=== PATIENT | male | born 1960 | race Caucasian/White ===

== ENCOUNTER 2019-10-26 15:24 | Outpatient (RCR) | payer BC, SELFPAY ==
[2019-08-07 16:38] LABS: INR 2.9
[2019-09-19 08:27] LABS: Prothrombin Time 30.4 Seconds (11.1-14.7)
[2019-10-26 15:54] LABS: INR 2.6; Prothrombin Time 27.2 Seconds (11.1-14.7)
== END 2019-11-05 23:59 | disposition home or self-care (01) ==
LOC: ANHLAB 15:24
PROVIDERS: PCP Family Medicine Adolescent Medicine; Visit Provider Family Medicine Adolescent Medicine
DX: Z51.81 Encounter for therapeutic drug level monitoring (principal); Z79.01 Long term (current) use of anticoagulants
CPT/HCPCS: 36415; 85610

== ENCOUNTER 2020-03-05 07:28 | Outpatient (RCR) | payer BC, SELFPAY ==
[2020-01-02 10:03] LABS: INR 2.7
[2020-03-05 08:42] LABS: INR 2.5; Prothrombin Time 26.6 Seconds (11.1-14.7)
== END 2020-04-01 23:59 | disposition home or self-care (01) ==
LOC: ANHLAB 07:28
PROVIDERS: PCP Family Medicine Adolescent Medicine; Visit Provider Family Medicine Adolescent Medicine
DX: Z51.81 Encounter for therapeutic drug level monitoring (principal); Z79.01 Long term (current) use of anticoagulants
CPT/HCPCS: 36415; 85610

== ENCOUNTER 2020-06-29 11:04 | Outpatient (RCR) | payer BC, SELFPAY ==
[2020-05-02 08:28] LABS: INR 2.7; Prothrombin Time 28.2 Seconds (11.1-14.7)
[2020-06-29 12:40] LABS: INR 3.1; Prothrombin Time 31.2 Seconds (11.1-14.7)
== END 2020-07-31 23:59 | disposition home or self-care (01) ==
LOC: ANHLAB 11:04
PROVIDERS: PCP Family Medicine Adolescent Medicine; Visit Provider Family Medicine Adolescent Medicine
DX: Z51.81 Encounter for therapeutic drug level monitoring (principal); Z79.01 Long term (current) use of anticoagulants
CPT/HCPCS: 36415; 85610

== ENCOUNTER 2020-11-12 11:12 | Outpatient (RCR) | payer BC, SELFPAY ==
[2020-08-21 12:07] LABS: INR 2.9; Prothrombin Time 30.6 Seconds (11.1-14.7)
[2020-11-12 11:40] LABS: INR 3.7; Prothrombin Time 36.9 Seconds (11.1-14.7)
== END 2020-11-19 23:59 | disposition home or self-care (01) ==
LOC: ANHLAB 11:12
PROVIDERS: PCP Family Medicine Adolescent Medicine; Visit Provider Family Medicine Adolescent Medicine
DX: Z51.81 Encounter for therapeutic drug level monitoring (principal); Z79.01 Long term (current) use of anticoagulants
CPT/HCPCS: 36415; 85610

== ENCOUNTER 2021-03-21 06:33 | Outpatient (RCR) | payer BC, SELFPAY ==
[2021-01-17 11:42] LABS: INR 3.4
[2021-03-21 07:46] LABS: INR 2.4; Prothrombin Time 25.4 Seconds (11.1-14.7)
== END 2021-04-17 23:59 | disposition home or self-care (01) ==
LOC: ANHLAB 06:33
PROVIDERS: PCP Family Medicine Adolescent Medicine; Visit Provider Family Medicine Adolescent Medicine
DX: Z51.81 Encounter for therapeutic drug level monitoring (principal); Z86.711 Personal history of pulmonary embolism; Z79.01 Long term (current) use of anticoagulants
CPT/HCPCS: 36415; 85610

== ENCOUNTER 2021-09-02 11:57 | Outpatient (RCR) | payer BC, SELFPAY ==
[2021-07-01 15:05] LABS: INR 2.8; Prothrombin Time 28.6 Seconds (11.1-14.7)
[2021-09-02 12:20] LABS: INR 2.7; Prothrombin Time 28.1 Seconds (11.1-14.7)
== END 2021-09-29 23:59 | disposition home or self-care (01) ==
LOC: ANHLAB 11:57
PROVIDERS: PCP Family Medicine Adolescent Medicine; Visit Provider Family Medicine Adolescent Medicine
DX: Z51.81 Encounter for therapeutic drug level monitoring (principal); Z86.711 Personal history of pulmonary embolism; Z79.01 Long term (current) use of anticoagulants
CPT/HCPCS: 36415; 85610

== ENCOUNTER 2022-02-28 11:45 | Outpatient (RCR) | payer BC, SELFPAY ==
[2021-12-13 13:05] LABS: INR 3.2; Prothrombin Time 31.6 Seconds (11.1-14.7)
[2022-01-26 13:02] LABS: INR 3.3; Prothrombin Time 32.8 Seconds (11.1-14.7)
[2022-02-28 12:44] LABS: INR 3.5; Prothrombin Time 34.1 Seconds (11.1-14.7)
== END 2022-03-13 23:59 | disposition home or self-care (01) ==
LOC: ANHLAB 11:45
PROVIDERS: PCP Family Medicine Adolescent Medicine; Visit Provider Family Medicine Adolescent Medicine
DX: Z51.81 Encounter for therapeutic drug level monitoring (principal); Z86.711 Personal history of pulmonary embolism; Z79.01 Long term (current) use of anticoagulants
CPT/HCPCS: 36415; 85610